=== PATIENT | male | born 1955 | race Caucasian/White ===

== ENCOUNTER 2019-11-01 12:29 | Emergency (ER) | payer OTHER ==
[~2019-11-01] VITALS: Ht 182.9 cm; Wt 41.0 kg
[2019-11-01 13:36] LABS: HEMATOCRIT. 24.2 % (42.0-52.0); MEAN CORPUSCULAR HEMOGLOBIN 23.6 pg (28.0-32.0); MEAN CORPUSCULAR VOLUME 71.4 fL (80.0-94.0); MEAN PLATELET VOLUME 6.9 fl (7.4-10.4); PLATELET 377 x1000/uL (130-400); RED BLOOD CELL COUNT 3.38 mill/uL (4.7-6.1); RED CELL DISTRIBUTION WIDTH 17.2 % (11.6-14.6)
[2019-11-01 13:51] LABS: CHLORIDE 83 mEq/L (98-107); INR 1.3; PROTHROMBIN TIME 13.9 sec (9.6-11.0)
[2019-11-01 13:57] LABS: PHOSPHORUS 2.2 mg/dL (2.5-4.9)
[2019-11-01 14:00] LABS: CREATINE KINASE 65 IU/L (39-308)
[2019-11-01 14:05] LABS: PLATELET ESTIMATE NORMAL
[2019-11-01] MEDS ORDERED: LACTATED RINGERS 1,000 ML IV STA (14:53)
[2019-11-01 15:04] LABS: CLARITY URINE CLEAR (CLEAR); COLOR URINE YELLOW (YELLOW); KETONES URINE NEGATIVE (NEGATIVE); LEUKOCYTE ESTERASE URINE NEGATIVE (NEGATIVE); NITRITE URINE NEGATIVE (NEGATIVE); OCCULT BLOOD URINE NEGATIVE (NEGATIVE); PROTEIN URINE NEGATIVE (NEGATIVE); SPECIFIC GRAVITY URINE 1.006 (1.005-1.030)
[2019-11-01] MEDS ORDERED: POTASSIUM CHLORIDE INJ 40 MEQ in DEXT 5% WATER 500 ML IV ONE (17:00)
[2019-11-01] MEDS ORDERED: POTASSIUM CHLORIDE 20MEQ TABLET SR PO NR (17:00)
[2019-11-01 20:50] VITALS: BP 91/55
== END 2019-11-01 21:09 | disposition short-term general hospital (02) ==
LOC: ER 12:47 → CANBEDREQ 21:16
DX: R62.7 Adult failure to thrive (principal); E87.1 Hypo-osmolality and hyponatremia; E87.6 Hypokalemia; I10 Essential (primary) hypertension; E78.00 Pure hypercholesterolemia, unspecified
CPT/HCPCS: 36415; 70450; 71045; 80053; 81003; 82550; 83605; 83690; 83735; 84100; 84134; 84484; 85025; 85610; 93005; 96365; 99285; J3480; J7060; J7120